=== PATIENT | male | born 1950 | race Caucasian/White ===

== ENCOUNTER 2017-11-16 10:56 | Inpatient (IN) | payer MEDICARE, OTHER ==
[~2017-11-16] VITALS: Ht 193 cm; Wt 113.4 kg
[2017-11-16 11:16] VITALS: BP 107/69
[2017-11-16] MEDS ORDERED: COZAAR 25 MG TA25 M1 PO (11:28)
[2017-11-16] MEDS ORDERED: SIMVASTATIN40 MG PO (11:28)
[2017-11-16] MEDS ORDERED: COUMADIN 5 MG TA5 M1 PO (11:28)
[2017-11-16] MEDS ORDERED: LASIX 20 MG TAB20 MG PO (11:28)
[2017-11-16] MEDS ORDERED: COREG25 MG PO (11:28)
[2017-11-16 11:32] LABS: ABSOLUTE EOSINOPHILS 0.3 thou/uL (0.0-0.7); ABSOLUTE LYMPHOCYTES 1.2 thou/uL (0.8-5.3); ABSOLUTE NEUTROPHILS 6.1 thou/uL (1.6-8.1); BASOPHILS 0.5 %; HEMOGLOBIN 13.1 gm/dL (14.0-18.0); LYMPHOCYTES 13.8 %; MCH 30.1 pg (26.0-34.0); MCHC 33.6 g/dL (28.0-37.0); MCV 89.5 fL (80.0-100.0); MONOCYTES 11.4 %; MPV 8.5 fl. (7.2-11.1); NUCLEATED RBCS 0 /100WBC; PLATELET COUNT* 202 thou/uL (150-400); POLYS 71.3 %; RBC 4.36 mil/uL (4.50-6.00); WBC 8.5 thou/uL (4.0-11.0)
[2017-11-16 11:41] LABS: CALCIUM 8.9 mg/dL (8.5-10.1); POTASSIUM 4.4 mmol/L (3.5-5.1)
[2017-11-16 11:49] LABS: INR 3.7; PROTIME 35.3 Seconds (9.20-11.50)
[2017-11-16 11:52] LABS: ALBUMIN 3.5 g/dL (3.4-5.0); TOTAL BILIRUBIN 2.1 mg/dL (<0.1-1.0); TOTAL PROTEIN 7.2 g/dL (6.4-8.2)
--- NOTE | 2017-11-16 15:01 | EKG ---
[place] [address] ELECTROCARDIOGRAM REPORT Name: AKBAR WALL Room: [place] [address] ADM IN .R.#: [id number] Admission: 11/16/17 Attend Phys: Chon Tan Discharge: Date of : 54 Report #: [id number] THIS REPORT FOR: //name// [facility] ED Test Date: 2017-11-16 Test Time: 13:58:28 Pat Name: AKBAR WALL Department: Room: [facility] Gender: Trader [employer] Income: Corazon CENTENO : 1950 Requested By: Yvonne Dang Order Number: [id number] MD: Axel Alonzo Measurements Intervals [place] Rate: 131 P: IN: QRS: 38 QRSD: 104 T: -21 QT: 322 QTc: 476 Interpretive Statements Atrial fibrillation consider Inferior infarct, age indeterminate Baseline wander in lead(s) II,III,aVF No previous ECG available for comparison Electronically Signed On 11-16-2017 15:01:29 [employer]PERVISOR [employer] by Axel Alonzo [email or web address] <ELECTRONICALLY SIGNED> By: Axel Alonzo MD, [facility] 11/16/17 1501 1358 [id number] Axel Alonzo MD, [facility] /EPI
[2017-11-16 16:33] VITALS: BP 107/59
[2017-11-16 16:45] VITALS: BP 109/59
--- NOTE | 2017-11-16 19:20 | NUR ---
REPORT RECEIVED AT 1635. PT BROUGHT TO UNIT AND ASSUMED CARE AT 1645. VSS. ASSESSMENT COMPLETED AND CHARTED. CARDIAC MONITORING IN PLACE. CALL LIGHT WITHIN REACH/ FALL AGREEMENT SIGNED/ PT EDUCATED ON CALLING WHEN NEEDING ASSISTANCE. PT ON BEDREST DUE TO INABILITY TO PUT PRESSURE ON HIS R LEG. DISCUSSED PLAN OF CARE WITH PT AND PT VERBALIZED UNDERSTANDING OF PLAN. PT REPORTS PAIN 8/10 IN RIGHT CALF, PAIN MEDICATION ADMINISTERED. WILL CONTINUE TO MONITOR UNTIL THE END OF SHIFT
[2017-11-16 20:00] VITALS: BP 100/63
[2017-11-17] VITALS: BP 146/50
--- NOTE | 2017-11-17 00:37 | NUR ---
RESTING IN BED. NO COMPLAINTS. CONT. TO MONITOR RLE CELLULITIS. UP WITH ASSIST. PAIN WITH BEARING WT ON RIGHT LEG. DNIES COMPLAINTS OF PAIN OR DISCOMFORT. NO SIGN OF DISTRESS. BED IN LOW POSITION, CALL LIGHT IN REACH. BED ALARM ON. CONT. WITH PLAN OF CARE.
[2017-11-17 04:00] VITALS: BP 108/66
[2017-11-17 05:06] LABS: HEMATOCRIT 36.9 % (42.0-52.0); HEMOGLOBIN 12.4 gm/dL (14.0-18.0); MCHC 33.7 g/dL (28.0-37.0); MCV 89.2 fL (80.0-100.0); MPV 8.8 fl. (7.2-11.1); RBC 4.14 mil/uL (4.50-6.00); RDW-CV 13.9 % (10.5-14.5); WBC 8.7 thou/uL (4.0-11.0)
[2017-11-17 05:20] LABS: INR 3.2; PROTIME 30.6 Seconds (9.20-11.50)
[2017-11-17 05:54] LABS: ALBUMIN 3.2 g/dL (3.4-5.0); CALCIUM 8.3 mg/dL (8.5-10.1); CREATININE 0.9 mg/dL (0.6-1.3); POTASSIUM 4.3 mmol/L (3.5-5.1); TOTAL BILIRUBIN 1.8 mg/dL (<0.1-1.0); TOTAL PROTEIN 6.2 g/dL (6.4-8.2)
--- NOTE | 2017-11-17 07:03 | NUR ---
CALL PLACED WITH CADDY/CADDIE SUPERVISOR PHYSICIAN CONCERNING HOME MEDS AT AROUND 2230. PHYSICIAN WANTS TO SEE PATIENT IN AM BEFORE STARTING MEDS DUE TO LOW BPS
[2017-11-17 08:30] VITALS: BP 93/60
--- NOTE | 2017-11-17 09:47 | NUR ---
RECEIVED REPORT AND ASSUMED CARE AT 0730. VSS. CARDIAC MONITORING IN PLACE. PT A&O X4. PT REPORTS PAIN 8/10 IN R CALF, PAIN MEDS ADMINISTERED. ASSESSMENT COMPLETED AND CHARTED. PT UP WITH MOD ASSIST IN ROOM. CALL LIGHT WITHIN REACH, BED ALARM ON, BED IN LOWEST POSITION. DISCUSSED PLAN OF CARE WITH PT. PT VERBALIZES UNDERSTANDING OF PLAN OF CARE. WILL CONTINUE TO MONITOR FOR REMAINDER OF SHIFT
--- NOTE | 2017-11-17 10:42 | NUR ---
CM ASSESSMENT: Pt is A&O. Resides at home with his . Independent with ADLs. No DME. No hx of HH or SNF. Pt reports normally being pretty healthy. Admitted for RLE Cellulitis, discussed possible need for home IVABX therapy at [facility]. outpt. CM to following for disposition.
[2017-11-17 11:38] VITALS: BP 103/53
[2017-11-17 15:39] VITALS: BP 121/71
--- NOTE | 2017-11-17 16:22 | NUR ---
PT WATCHING TV IN ROOM. VSS. CARDIAC MONITORING IN PLACE. PT REPORTS PAIN IN R CALF, PRN PAIN MEDICATION ADMINISTERED. PT REPORTS PARTIAL RELIEF FROM MEDICATION. PT UP WITH MODERATE ASSIST. CALL LIGHT WITHIN REACH, BED IN LOWEST POSITION AND LOCKED. PT TOLERATING ANTIBIOTIC TX WELL, EDUCATED ON LAB TROPH DUE 11/18. WILL CONTINUE TO MONITOR FOR THE REMAINDER OF THE SHIFT
[2017-11-17 20:00] VITALS: BP 106/57
--- NOTE | 2017-11-18 00:58 | NUR ---
RESTING IN BED. UP IN CHAIR EARLIER. PAIN MEDS EARLIER, REPORTS RELIEF. UP WITH ASSIST. RLE WITH REDDNESS AND SWELLING. BED IN LOW POSITION, CALL LIGHT IN REACH. CONT. WITH PLAN OF CARE AT THIS TIME.
[2017-11-18 04:00] VITALS: BP 104/66
[2017-11-18 08:00] VITALS: BP 101/61
--- NOTE | 2017-11-18 11:04 | CON ---
[address] [address] CONSULTATION Name: FRAN WALL Room: [address] ADM IN M.R.#: [id number] Admission: 11/16/17 Attend Phys: Chon Tan Discharge: Date of : 54 Report #: [id number] THIS REPORT FOR: //name// CC: Dr. Jennifer Stanley MD [facility] Naif Hernandez INDICATION: Possible heart failure. HISTORY OF PRESENT ILLNESS: The patient is a very pleasant 67-year-old gentleman with history of nonischemic cardiomyopathy with EF of 35%. He has been stable from a cardiac standpoint. He has had unilateral right lower extremity swelling and pain since last . Ultrasound shows no evidence of DVT, but possible ruptured Campos's cyst. He does not have significant edema of the left lower extremity. He denies shortness of breath. He is not having chest pain. He has chronic atrial fibrillation. His rate is somewhat fast here in the hospital. He denies palpitations. He is not having lightheadedness, dizziness, or syncope. He is without other cardiac complaint. He is chronically anticoagulated with warfarin with an INR of 3.2 presently. PAST MEDICAL HISTORY: 1. Persistent atrial fibrillation. 2. Chronic anticoagulation. 3. Nonischemic cardiomyopathy with EF of 35%. 4. Moderate tricuspid insufficiency. 5. Hyperlipidemia. 6. Osteoarthritis. PAST SURGICAL HISTORY: 1. Hernia repair. 2. Knee surgery. 3. Varicose vein surgery. FAMILY HISTORY: Noncontributory. SOCIAL HISTORY: The patient does not smoke. He does not drink alcohol. ALLERGIES: ATORVASTATIN. HOME MEDICATIONS: Carvedilol 25 mg p.o. b.i.d., furosemide 20 mg p.o. daily, losartan 25 mg p.o. daily, simvastatin 40 mg p.o. every evening, and warfarin 5 [place] [address] CONSULTATION Name: FRAN WALL Room: [address]#: [id number] Admission: 11/16/17 Attend Phys: Chon Tan Discharge: Date of : 54 Report #: [id number] REVIEW OF SYSTEMS: A 14-point review. NEUROLOGIC: The patient denies convulsions, seizures or focal paralysis. GENERAL: There is no unexplained weight loss or fever. RESPIRATORY: He is without cough or underlying lung disease. CARDIOVASCULAR: As outlined above. ENDOCRINE: No history of diabetes or thyroid disease. GASTROINTESTINAL: No vomiting, hematemesis, melena, hematochezia, jaundice, or hepatitis. GENITOURINARY: No dysuria or hematuria. HEMATOLOGIC AND LYMPHATIC: He denies any history of anemia, bleeding disorder, or blood clots. ALLERGIC AND IMMUNOLOGIC: Medical allergies as outlined above. PSYCHIATRIC: No depression or anxiety. MUSCULOSKELETAL: Some arthritis without connective tissue diseases. SKIN: No recent rashes, hives or chronic skin conditions. EYES: He wears glasses without acute visual change. PHYSICAL EXAMINATION: VITAL SIGNS: Stable. Blood pressure 121/71, pulse currently in the 90s and irregular. GENERAL: This is a pleasant gentleman, in no distress. Mood and affect appropriate. HEENT: Extraocular muscles are intact. Mucous membranes are moist. NECK: Shows no jugular venous distention. There are no carotid bruits. CHEST: Reveals clear lung werner without wheezes, rales or rhonchi. CARDIOVASCULAR: Reveals a tachycardic rhythm that is irregularly irregular without gallop or murmur. ABDOMEN: Reveals normal bowel sounds. The abdomen is soft and nontender. EXTREMITIES: Shows 3+ pitting edema to the right knee. Left lower extremity without edema. SKIN: Warm and dry. A 12-lead EKG shows atrial fibrillation with a rapid ventricular response rate. I do not appreciate acute ST or T-wave abnormality. LABS: Reviewed. INR is 3.2. NT-proBNP minimally elevated, likely due to atrial fibrillation. IMPRESSION AND RECOMMENDATIONS: 1. Unilateral lower extremity edema, likely due to recently ruptured popliteal or Campos cyst. There is no evidence of deep vein thrombosis. I do not think this is as it is unilateral. 2. Nonischemic cardiomyopathy, [place] [address] CONSULTATION Name: FRAN WALL Room: [address] IN M.R.#: [id number] Admission: 11/16/17 Attend Phys: Chon Tan Discharge: Date of : 54 Report #: [id number] 3. Atrial fibrillation that is persistent. We will adjust rate controlling medications. Continue warfarin for a goal INR of 2.0 to 3.5. <ELECTRONICALLY SIGNED> By: Fran Batista MD, FACC 11/18/17 1104 1703 1946[facility] Batista MD, FAC /nt
[2017-11-18 12:00] VITALS: BP 108/58
--- NOTE | 2017-11-18 15:07 | 2DMMODE ---
[place] [address] 2 D/M-MODE ECHOCARDIOGRAM Name: AKBAR WALL Room: [address] ADM IN [facility]#: [id number] Admission: 11/16/17 Attend Phys: Naif Hernandez Discharge: Date of : 54 Date of Service: 11/18/17 1506 Report #: [id number] THIS REPORT FOR: //name// APPROVED REPORT Study performed: 11/18/2017 11:03:32 EXAM: Comprehensive 2D, Doppler, and color-flow Echocardiogram Patient Location: In-Patient Room #: [facility] Status: routine BSA: 2.28 HR: 75 bpm BP: 101/61 mmHg Rhythm: Atrial Fibrillation Other Information Study Quality: Excellent Indications Congestive Heart Failure Atrial Fibrillation Dyspnea 2D Dimensions LVEF(%): 48.47 (>50%) IVSd: 11.83 (7-11mm) LVOT Diam: 23.09 (18-24mm) LVDd: 51.72 mm PWd: 11.16 (7-11mm) Ascending Ao: 33.71 (22-36mm) LVDs: 39.00 (25-40mm) Aortic Root: 35.01 mm Bates's LVEF: 48.47 % Volumes Left Atrial Volume (Systole) LA ESV Index: 69.90 mL/m2 Aortic Valve AoV Peak Michael.: 1.08 m/s AO Peak Gr.: 4.63 mmHg LVOT Max P.47 mmHg AO Mean Gr.: 3.01 mmHg LVOT Mean P.24 mmHg LVOT Max V: 0.79 m/s AO V2 VTI: 21.26 cm LVOT Mean V: 0.51 m/s ESTEBAN (VTI): 2.65 cm2 LVOT V1 VTI: 13.43 [place] [address] 2 D/M-MODE ECHOCARDIOGRAM Name: AKBAR WALL Room: [address] IN .R.#: [id number] Admission: 11/16/17 Attend Phys: Naif Hernandez Discharge: Date of : 54 Date of Service: 11/18/17 1506 Report #: [id number] Mitral Valve MV Decel. Time: 117.26 ms MV PHT: 34.00 ms MVA (PHT): 6.47 cm2 TDI Medial E' Michael.: 0.16 m/s Lateral E' Michael.: 0.16 m/s Pulmonary Valve PV Peak Michael.: 1.33 m/s PV Peak Gr.: 7.07 mmHg Tricuspid Valve TR Peak Gr.: 21.04 mmHg RVSP: 26.00 mmHg Left Ventricle The left ventricle is normal size. There is normal LV segmental wall motion. Mild concentric left ventricular hypertrophy. Left ventricular systolic function is mildly decreased. LVEF is 40-45%. This study is not technically sufficient to allow evaluation of the LV diastolic function due to atrial fibrillation. Right Ventricle The right ventricle is normal size. The right ventricular systolic function is normal. Atria Left atrium is severely dilated. Right atrium is mildly dilated. Aortic Valve The aortic valve is normal in structure. No aortic regurgitation is present. There is no aortic valvular stenosis. Mitral Valve The mitral valve is normal in structure. Trace mitral regurgitation. No evidence of mitral valve stenosis. Tricuspid Valve The tricuspid valve is normal in structure. Mild tricuspid regurgitation. The RVSP is __35__ mmHg. Pulmonic Valve The pulmonary valve is normal in structure. Trace [place] [address] 2 D/M-MODE ECHOCARDIOGRAM Name: AKBAR WALL Room: [address] IN [facility]#: [id number] Admission: 11/16/17 Attend Phys: Naif Hernandez Discharge: Date of : 54 Date of Service: 11/18/17 1506 Report #: [id number] Great Vessels The aortic root is normal in size. IVC is normal in size and collapses with >50% inspiration Pericardium There is no pericardial effusion. <Conclusion> Mild concentric left ventricular hypertrophy. LVEF is 40-45%. Left atrium is severely dilated. <ELECTRONICALLY SIGNED> By: Axel Alonzo MD, FACC 11/18/17 1506 1506 1506 Axel Alonzo MD, FAC /INF
[2017-11-18 16:08] VITALS: BP 99/50
--- NOTE | 2017-11-18 19:28 | NUR ---
ASSUMED CARE OF PT AT 0730. PT CONTINUES TO BE A&O X4 CALM AND COOPERATIVE. PT UP WITH 1 ASSIST AND WALKER. PT DOING WELL MAINTAINING NWB STATUSA TO RLE. RLE CONTINUES TO BE RED WARM AND SWOLLEN. PT C/O PAIN IN RLE AND PAIN HAS BEEN EFFECTIVELY CONTROLLED WITH PRN PO PAIN MEDS. PT TRACING A FIB ON THE MONITOR. VSS AND PT HAS AHD NO C/O CHEST PAIN, NAUSEA, OR ANY OTHER DISTRESS. NURSING WILL CONTINUE TO MONITOR.
[2017-11-18 19:50] VITALS: BP 110/65
[2017-11-19 00:07] VITALS: BP 100/65
[2017-11-19 04:00] VITALS: BP 87/55
--- NOTE | 2017-11-19 06:00 | NUR ---
A&O X4 CALM COOPERITVE. AFIB ON THE MONITOR. X1 ASSIST WITH WALKER. RA. PAIN IN LOWER RIGHT CALF. GIVEN MEDICATION WITH RELIEF NOTED. DISCOLORATION IN BILAT CALFS. VITALS WNL. FALL PRECATUIONS IN PLACE. HOURLY ROUNDING FOR SAFETY.
[2017-11-19 09:07] VITALS: BP 99/53
[2017-11-19 11:48] LABS: ABSOLUTE BASOPHILS 0.1 thou/uL (0.0-0.2); ABSOLUTE EOSINOPHILS 0.3 thou/uL (0.0-0.7); ABSOLUTE LYMPHOCYTES 1.1 thou/uL (0.8-5.3); ABSOLUTE MONOCYTES 0.9 thou/uL (0.0-1.2); ABSOLUTE NEUTROPHILS 4.8 thou/uL (1.6-8.1); BASOPHILS 1.1 %; EOSINOPHILS 4.1 %; HEMATOCRIT 36.9 % (42.0-52.0); HEMOGLOBIN 12.3 gm/dL (14.0-18.0); LYMPHOCYTES 15.6 %; MCH 29.7 pg (26.0-34.0); MCHC 33.4 g/dL (28.0-37.0); MONOCYTES 12.3 %; MPV 8.3 fl. (7.2-11.1); NUCLEATED RBCS 0 /100WBC; PLATELET COUNT* 226 thou/uL (150-400); POLYS 66.9 %; RBC 4.15 mil/uL (4.50-6.00); RDW-CV 13.5 % (10.5-14.5); WBC 7.2 thou/uL (4.0-11.0)
[2017-11-19 11:59] LABS: CALCIUM 8.3 mg/dL (8.5-10.1); CREATININE 0.9 mg/dL (0.6-1.3); POTASSIUM 4.1 mmol/L (3.5-5.1)
[2017-11-19 12:00] VITALS: BP 85/40
--- NOTE | 2017-11-19 15:16 | NUR ---
RECEIVED REPORT. ASSUMED CARE OF PT AT 0730. PT A&OX4. VSS. O2 SAT 97% ON RA. CARDAIC MONITOR IN PLACE TRACING AFIB. AM ASSESSMENT AND VITALS COMPLETED CHARTED. IV SALINE LOCKED. PT REPORTS PAIN IN RLE. PO PAIN MEDICATION GIVEN WITH RELIEF. RLE EDEMA NOTED - EXTREMITY IS WARM, FIRM AND TENDER TO TOUCH. BILATERAL LOWER EXTREMITIES ARE DISCOLORED. PT WORKED WITH PT/OT TODAY. PT INFORMED OF PLAN OF CARE, COMMUNICATES UNDERSTANDING. PT UP WITH 1 AND WALKER TO THE BATHROOM, VOIDING WITHOUT ISSUE. PT EATING AND DRINKING WITHOUT ISSUE. HIGH FALL PRECAUTIONS IN PLACE. CALL LIGHT IS WTIHIN REACH. WILL CONTINUE TO MONITOR.
[2017-11-19] MEDS ORDERED: KEFLEX500 M1 PO (15:19)
[2017-11-19 15:36] VITALS: BP 85/40
[2017-11-19 16:00] VITALS: BP 102/51
--- NOTE | 2017-11-19 18:32 | NUR ---
DISCHARGE ORDERS RECIEVED. DISCHARGE COMPLETED DOCUMENTED. DISCHARGE SUSANARY GONE OVER WITH THE PT, PT COMMUNICATES UNDERSTANDING. DISCHARGE SUMMARY, CARE NOTES, AND SCRIPTS GIVEN TO PT. IV AND ADJUNCT PROFESSOR OF ENGLISH REMOVED. ALL BELONGINGS GATHERED AND SENT WITH THE PT. VSS AT TIME OF DC. PT EATING AND DRINKING WITHOUT ISSUE. PT UP WITH WALKER AND ASSIST X1 TO BATHROOM, VOIDING WITHOUT ISSUE. PT LEFT UNIT IN WC WITH NURSING STAFF. PT LEFT FACILITY WITH IN CAR.
--- NOTE | 2017-11-20 06:45 | CON ---
[facility] [address] [place] [address] CONSULTATION Name: AKBAR WALL Room: [address] IN M.R.#: [id number] Admission: 11/16/17 Attend Phys: Chon Tan Discharge: 11/19/17 Date of : 54 Report #: [id number] THIS REPORT FOR: //name// CC: Lashell Hernandez HISTORY OF PRESENT ILLNESS: This is a 67-year-old gentleman seen in the hospital for right lower leg pain and swelling. This gentleman apparently started to have difficulty ambulating, was crawling around even that his leg was hurting him so bad, was admitted to this hospital for further evaluation and treatment. The patient does not recall ever having this in the past that he remembers. On his physical examination otherwise, he does have a medical history of medication-randle being on warfarin 5 mg a day, Lasix 20 mg a day, simvastatin 40 mg a day, losartan 25 mg a day, carvedilol 25 mg b.i.d. PAST MEDICAL HISTORY: CHF, arthritis, some heart disease. The patient otherwise does demonstrate to have socially he has no tobacco or alcohol consumption and is . The patient otherwise also has never had pain like this in the past that he can remember. The patient also has never had that swelling behind his leg or anywhere on that lower leg region. His pain is just worse with weightbearing. He does have his physical exam. Otherwise, he is alert and oriented, cooperative. He has appropriate affect and judgment. Normocephalic. Sclerae right. Mucous membranes are moist. He is very pleasant. He speaks very loudly, a little difficulty, hard of hearing. The ultrasound scan was completed of his right lower leg showing a Campos cyst evident with either ruptured popliteal cyst or a potential of a gastroc strain. The patient on examination otherwise today he has no audible wheezes that are detected. ABDOMEN: Flat. EXTREMITIES: The lower extremities are significant. He has a cellulitis in the form and increased warmth to that right lower extremity on palpation and negative on the left. He has an effusion of the right knee, not the left. His range of motion is 0-115 degrees on both knees. Collaterals are stable in both legs. He does demonstrate 5/5 strength. He is tender in the calf region on that right leg more proximal gastroc area and right popliteal space area. He is nontender on the left side. On comparison ankle flexion and dorsiflexion, palmar and plantar flexion are normal. The patient also does demonstrate to show the dependent edema in the lower extremity on the right side, none on the left side. Otherwise, this gentleman shows normal sensation in the lower extremities as well. IMPRESSION: Cellulitis, right lower extremity with right lower leg edema. He has a Campos cyst and right knee effusion as well. PLAN: He is on appropriate antibiotics for this. I think with time, that should help totally get better. He has a pending MRI [place] [address] CONSULTATION Name: AKBAR WALL Room: [address] DIS IN M.R.#: [id number] Admission: 11/16/17 Attend Phys: Chon Tan Discharge: 11/19/17 Date of : 54 Report #: [id number] having a pending MRI, whether he has a gastroc tear or just simple Campos's cyst, we will treat conservatively. With the cellulitis that he has, thigh high MARLA hose could be beneficial for him. In any event, that is what we will have to offer him at this point in time. It is not to the point I need to aspirate his knee, otherwise and I probably would not with the cellulitis on the leg. We will follow him as needed for this. Our pleasure seeing and taking care of the patient today. <ELECTRONICALLY SIGNED> By: Chidi Adan DO 11/20/17 0645 1243 Vu Adan DO /laura
== END 2017-11-19 18:36 | disposition home or self-care (01) | DRG 603 ==
LOC: M.ERS 10:56 → M.2W 14:46 → M.TBA-ER 14:46 → M.2W 16:40
PROVIDERS: Nurse Practitioner Family; ADMIT Internal Medicine
DX: L03.115 Cellulitis of right lower limb (principal); R65.10 Systemic inflammatory response syndrome (SIRS) of non-infectious origin without acute organ dysfunction; I48.1 Persistent atrial fibrillation; I42.9 Cardiomyopathy, unspecified; I50.22 Chronic systolic (congestive) heart failure; M19.90 Unspecified osteoarthritis, unspecified site; E78.5 Hyperlipidemia, unspecified; M25.461 Effusion, right knee; E80.6 Other disorders of bilirubin metabolism; M71.20 Synovial cyst of popliteal space [Baker], unspecified knee; Z88.8 Allergy status to other drugs, medicaments and biological substances; Z79.899 Other long term (current) drug therapy; Z82.49 Family history of ischemic heart disease and other diseases of the circulatory system